=== PATIENT | female | born 1980 | race Caucasian/White ===

== ENCOUNTER 2017-05-13 14:20 | Day surgery (SDC) | payer BC ==
[~2017-05-13] VITALS: Ht 172.7 cm; Wt 72.0 kg
[2017-05-13] VITALS (9 sets, daily range): BP systolic 95–128; BP diastolic 69–86; PULSE 71–89; TEMP 97.4–98.3
[~2017-05-13 14:20] MED LIST: FERROUS SU325 MG/TAB PO; IBU600 MG PO; MOTRIN 800800 MG/TAB PO; NUVARING1 ICR VG; PERCOCET 325 MG1 TA2 PO; PROZAC20 MG PO
[2017-05-13] MEDS ORDERED: ZOFRAN ODT4 MG PO (15:06)
[2017-05-13] MEDS ORDERED: CIPRO 500MG TA500 MG PO (15:07)
[2017-05-13] MEDS ORDERED: NORCO 325 MG-51 TAB PO (15:08)
[2017-05-13] MEDS ORDERED: FLAGYL500 MG PO (15:08)
[2017-05-13] MEDS ORDERED: IBU600 MG PO (15:09)
== END 2017-05-13 21:05 | disposition home or self-care (01) ==
LOC: SDCO 14:20 → SURG 16:50 → SDCO 21:05
DX: K80.50 Calculus of bile duct without cholangitis or cholecystitis without obstruction (principal); Z90.49 Acquired absence of other specified parts of digestive tract
CPT/HCPCS: OP; C1769; J2704; J2765; J3010; J7030; Q9967

== ENCOUNTER → 2022-11-11 | Outpatient (CLI) | payer BC ==
[~2022-11-11] MED LIST changes: +CIPRO 500MG TA500 MG PO; +FLAGYL500 MG PO; +NORCO 325 MG-51 TAB PO; +ZOFRAN ODT4 MG PO
== END ==
LOC: MC.RAD 07:46
DX: Z12.31 Encounter for screening mammogram for malignant neoplasm of breast (principal); N63.10 Unspecified lump in the right breast, unspecified quadrant

== ENCOUNTER → 2023-07-17 | Outpatient (CLI) | payer BC | LOC: MC.RAD 13:54 | DX: Z12.31 Encounter for screening mammogram for malignant neoplasm of breast (principal) ==

== ENCOUNTER → 2023-11-24 | Outpatient (CLI) | payer BC | LOC: MC.RAD 10:21 | DX: Z12.31 Encounter for screening mammogram for malignant neoplasm of breast (principal) ==